=== PATIENT | male | born 1940 | race Caucasian/White ===

== ENCOUNTER → 2018-03-15 10:35 | Outpatient (CLI) | payer OTHER, SELFPAY ==
--- NOTE | 2018-03-15 | DI.ECHO.S_ITS ---
[facility]---------+ [facility] +---------+ : : [address] : : : : [id number] : : : : Phone: [phone] +---------+ Echocardiogram Report + + :Name: GINA GUNDERSON Study Date: 03/15/2018 Height: 66 in : :[facility] Weight: 264 lb: : Gender: Male BSA: 2.3 m2 : :: 1940 Age: 77 yrs : :Reason For Study: Atrial fibrillation : :Ordering Physician: Venkatesh : :José Miguel Performed By: Lenora Georges : :Referring: Kalpana Young : + + Interpretation Summary 1) Normal left ventricular thickness, size, and systoilc function (EF 55-60%). 2) There are no obvious focal wall motion abnormalities noted but poor endocardial definition reduces the sensitivity for the detection of such. 3) Mildly to moderately enlarged right ventricle with mildly reduced function. 4) There is severe biatrial enlargement. 5) There is mild to moderate tricuspid regurgitation. 6) Compared to the Echo done 05/13/2011, RV is enlarged on today's study. Procedure: A two-dimensional transthoracic echocardiogram with color flow and Doppler was performed. The study quality was technically adequate. Comparison is made with the echocardiogram of 05-13-11. Blood pressure was unobtainable. The patient was in atrial fibrillation with heart rates between 70-83 bpm during the exam. Left Ventricle: The left ventricle is normal in size. There is normal left ventricular wall thickness. The ejection fraction is estimated to be 55-60%. Left ventricular systolic function is normal. There are no obvious focal wall motion abnormalities noted but poor endocardial definition reduces the sensitivity for the detection of such. Diastolic function could not be accurately assessed due to atrial fibrillation. Right Ventricle: The right ventricle is mild to moderately dilated. Right ventricular systolic function is mildly reduced. Atria: There is severe biatrial enlargement. The interatrial septum is intact with no evidence for an atrial septal defect. Mitral Valve: The mitral valve is normal in structure and function. There is trace mitral regurgitation. Aortic Valve: The aortic valve is trileaflet. The aortic valve opens well. There is no aortic valve stenosis. No aortic regurgitation is present. Tricuspid Valve: The tricuspid valve leaflets are thin and pliable. There is mild to moderate tricuspid regurgitation. The right ventricular systolic pressure is estimated at 31 mmHg assuming a right atrial pressure of 3 mm Hg. Pulmonic Valve: The pulmonic valve is normal in structure and function. There is no pulmonic valvular regurgitation. Great Vessels: The aortic root is normal size. The dimensions of the ascending aorta are normal. The IVC is of normal diameter and collapses greater than 50% with a sniff. This suggests a low right atrial pressure of 3 mm Hg. Pericardium/ Pleura There is no pericardial effusion. There is no pleural effusion. MMode/2D Measurements & Calculations LVIDd: 5.2 cm Ao root diam: 3.6 cm LVIDs: 3.6 cm Aortic Jxn: 2.8 cm FS: 29.8 % asc Aorta Diam: 3.3 cm EPSS: 0.98 cm Ao Arch Diam (Prox Trans): 3.1 cm IVSd: 0.92 cm LVPWd: 0.98 cm LV cohen. diameter/BSA (cm/m^2): 2.3 LV sys. diameter/BSA (cm/m^2): 1.6 LA dimension: 4.8 cm RA long axis: 6.6 cm LA A2 area: 35.5 cm2 RA area: 38.2 cm2 LA A4 area: 37.6 cm2 RA vol: 188.9 ml LA length (vol): 7.6 cm RA : 83.9 ml/m2 LA vol: 148.5 ml IVC diam: 1.8 cm LA vol index: 66.0 ml/m2 Doppler Measurements & Calculations Ao V2 max: 129.8 cm/sec MV E max javi: 103.0 cm/sec Ao V2 mean: 84.3 cm/sec MV A max javi: 33.5 cm/sec Ao max P.7 mmHg MV E/A: 3.1 Ao mean P.3 mmHg Med Peak E' Javi: 5.2 cm/sec Ao V2 VTI: 25.7 cm E/E' med: 20.0 Lat Peak E' Jvai: 8.0 cm/sec E/E' lat: 12.9 E/e' average: 16.4 MV dec time: 0.19 sec MV P1/2t: 56.2 msec TR max javi: 264.0 cm/sec MV P1/2t max javi: 102.6 cm/sec TR max P.9 mmHg MVA(P1/2t): 3.9 cm2 PA V2 max: 72.5 cm/sec PA V2 mean: 49.9 cm/sec PA mean P.1 mmHg PA Accel Time: 0.11 sec Reading Physician:04:39 PM
== END ==
PROVIDERS: PCP Specialist; Visit Provider Specialist
DX: I48.2 Chronic atrial fibrillation (principal); I07.1 Rheumatic tricuspid insufficiency
CPT/HCPCS: 93306

== ENCOUNTER → 2021-04-23 09:02 | Outpatient (CLI) | payer OTHER, SELFPAY ==
--- NOTE | 2021-04-23 | DI.ECHO.S_ITS ---
[facility]---------+ [facility] +---------+ : : [address] : [address] : : : : [id number] : : : : Phone: [phone] : : [phone] +---------+ Echocardiogram Report + + :Name: GINA GUNDERSON Study Date: 04/23/2021 Height: 66 in : :[facility] ReadingLocation: Weight: 242 lb : : Gender: Male BSA: 2.2 m2 : :: 1940 Age: 80 yrs BP: 125/84 mmHg: :Reason For Study: HEART DISEASE : :Ordering Physician: FELICIA, : :MIKKI Performed By: Jeannine Magaña : :Referring: MIKKI DUARTE : + + Interpretation Summary Left ventricular systolic function appears normal with an estimated ejection fraction of 60 to 65% without focal wall motion abnormality and appears unchanged from the previous study. Left ventricular size and wall thickness appear normal. Diastolic function is challenging to assess in the setting of atrial fibrillation but there is no compelling evidence for increased filling pressures. There has been no significant change since the previous exam. The right ventricle appears normal in size and systolic function and appears smaller and slightly more dynamic compared to the previous study. Right ventricular systolic pressure is estimated at 31 mmHg with a CVP of 3 mmHg which is unchanged from the previous exam. There is severe biatrial enlargement. The right atrium measures slightly smaller compared to the previous exam. There is mild mitral and mild tricuspid regurgitation, the latter being slightly less prominent compared to the previous study. There is mild aortic valve sclerosis without stenosis. The ascending aorta is borderline enlarged and measures slightly larger compared to the previous study. The patient was in atrial fibrillation at 68 to 82 bpm throughout the exam. Procedure: A two-dimensional transthoracic echocardiogram with color flow and Doppler was performed. The study quality was technically adequate. Comparison is made with the echocardiogram of 03/15/2018. The patient was in atrial fibrillation with heart rates between 68-82 bpm during the exam. Left Ventricle: The left ventricle appears normal in size, wall thickness, and systolic function without any focal wall motion abnormalities. The ejection fraction is estimated to be 60-65%. Diastolic function could not be accurately assessed due to atrial fibrillation. There has been no significant change since the previous study. Right Ventricle: The right ventricle is normal in size and function. This is smaller and slightly more dynamic compared to the previous study. Atria: Both atria are severely dilated. The right atrium has mildly decreased in size since the prior echo exam. There is no Doppler evidence for an interatrial shunt. Mitral Valve: There is mild mitral annular calcification. There is mild mitral regurgitation. This is unchanged compared to the previous study. Aortic Valve: The aortic valve is trileaflet. The aortic valve is mildly calcified. There is mildly reduced leaflet mobility. There is no aortic valve stenosis. There is no hemodynamically significant valvular aortic stenosis. No aortic regurgitation is present. Tricuspid Valve: The tricuspid valve is normal in structure and function. There is mild tricuspid regurgitation. This is slightly less prominent compared to the previous study. The right ventricular systolic pressure is estimated to be at least 31 mmHg based on an estimated right atrial pressure of 3 mm Hg. This is unchanged compared to the previous study. Pulmonic Valve: The pulmonic valve is not well seen, but is grossly normal. There is trace pulmonic regurgitation. Great Vessels: The aortic root is normal size. The ascending aorta is at the upper limits of normal in size. This is slightly larger compared to the previous study. The IVC is of normal diameter and collapses greater than 50% with a sniff. This suggests a low right atrial pressure of 3 mm Hg. Pericardium/ Pleura There is no pericardial effusion. There is no pleural effusion. MMode/2D Measurements & Calculations LVIDd: 5.1 cm LVOT diam: 2.0 cm LVIDs: 3.7 cm Ao root diam: 3.5 cm FS: 27.2 % asc Aorta Diam: 3.5 cm IVSd: 1.0 cm Ao Arch Diam (Prox Trans): 2.7 cm LVPWd: 0.94 cm LV cohen. diameter/BSA (cm/m^2): 2.4 LV sys. diameter/BSA (cm/m^2): 1.7 LA A2 area: 33.5 cm2 RA long axis: 6.3 cm LA A4 area: 36.0 cm2 RA area: 30.4 cm2 LA length (vol): 7.7 cm RA vol: 124.5 ml LA vol: 132.8 ml RA : 57.4 ml/m2 LA vol index: 61.2 ml/m2 IVC diam: 1.9 cm RVD1 (basal): 3.9 cm TAPSE: 1.8 cm Doppler Measurements & Calculations Ao V2 max: 135.2 cm/sec LVOT Max Javi: 54.7 cm/sec Ao V2 mean: 103.6 cm/sec LV V1 max P.2 mmHg Ao max P.3 mmHg LV V1 VTI: 11.0 cm Ao mean P.6 mmHg ALEXANDER(I,D): 1.5 cm2 Ao V2 VTI: 23.8 cm ALEXANDER(V,D): 1.3 cm2 sev ratio: 0.46 ALEXANDER indexed to BSA (cm^2/m^2): 0.68 MV E max javi: 95.6 cm/sec TR max javi: 264.8 cm/sec MV A max javi: 1.7 cm/sec TR max P.0 mmHg MV E/A: 55.0 PA V2 max: 71.5 cm/sec Med Peak E' Javi: 6.0 cm/sec PA V2 mean: 45.8 cm/sec E/E' med: 15.9 PA mean P.99 mmHg Lat Peak E' Javi: 8.6 cm/sec PA pr(Accel): 55.0 mmHg E/E' lat: 11.1 E/e' average: 13.5 MV dec time: 0.20 sec SV(LVOT): 34.9 ml Reading Physician:09:09 AM
== END ==
PROVIDERS: PCP Physician Assistant Medical; Referring Provider Specialist; Visit Provider Specialist
DX: I65.23 Occlusion and stenosis of bilateral carotid arteries (principal); I51.9 Heart disease, unspecified
CPT/HCPCS: 93306

== ENCOUNTER → 2023-05-23 13:47 | Outpatient (CLI) | payer OTHER, SELFPAY ==
--- NOTE | 2023-05-24 22:46 | DI.NM.S_ITS ---
DATE OF SERVICE: 05/23/2023 PROCEDURE: Pharmacological perfusion study. INDICATIONS: Shortness of breath with underlying AFib. RADIOPHARMACEUTICAL: 27.1 millicurie technetium-99m Myoview IV was injected at stress and 27 millicurie technetium-99m Myoview IV was injected at rest. CARDIAC STRESS: The patient underwent IV Lexiscan perfusion study under the supervision of an attending staff as per protocol. The patient remained hemodynamically stable. Peak blood pressure 140/80 mmHg. Baseline rhythm was atrial fibrillation with nonspecific ST-T changes and frequent PVCs including ventricular couplets. During stress, patient continued to have PVCs. No ventricular tachycardia. No new ischemic changes. No chest pain. The patient had flushing, and shortness of breath with IV Lexiscan. RAW DATA: There is increased subdiaphragmatic activity. GATED STUDY: Stress LV ejection fraction 73% without any obvious wall motion abnormalities. Resting LV ejection fraction 70%. Resting end- diastolic volume 69 mL. TID ratio 1.18, which is within normal limits. Lung/heart ratio 0.28, which is within normal limits. MYOCARDIAL PERFUSION SCAN: Stress supine, resting supine and stress prone images were compared to each other. Stress supine and resting supine images revealed small size, minimally decreased perfusion of distal inferior wall as well as inferoapex which got resolved during stress prone images suggestive of diaphragmatic tissue attenuation artifact. No convincing ischemia or infarction. CONCLUSION: I will call this study a likely normal myocardial perfusion study with evidence of diaphragmatic tissue attenuation artifact, which got improved during stress prone images. No convincing ischemia or infarction. Baseline rhythm atrial fibrillation, also has intermittent premature ventricular contractions. Left ventricular function is preserved. Overall, low-risk myocardial perfusion scan. Nash Quiroga - PREET/dar/REJI doc#: [id number]/job#: [id number] dd: 05/24/2023 17:08:00 dt: 05/24/2023 22:33:00 DICTATING MD/COPIES TO: Selena Aparicio MD COPIES MNE: CELINA;
== END ==
PROVIDERS: PCP Physician Assistant Medical; Referring Provider Specialist; Visit Provider Specialist
DX: R06.09 Other forms of dyspnea (principal); I49.3 Ventricular premature depolarization
CPT/HCPCS: 78452; 93017; A9502; J2785

== ENCOUNTER → 2023-11-24 06:44 | Outpatient (CLI) | payer OTHER, SELFPAY ==
--- NOTE | 2023-11-24 06:45 | DI.ECHO.S_ITS ---
[facility]---------+ [facility] +---------+ : : [address] : : : : [id number] : : : : Phone: [phone] : : [phone] +---------+ Echocardiogram Report + + :Name: GINA GUNDERSON Study Date: 11/24/2023 Height: 66 in : :[facility] ReadingLocation: Weight: 255 lb : : Gender: Male BSA: 2.2 m2 : :: 1940 Age: 83 yrs BP: 146/98 mmHg: :Reason For Study: CHEST PAIN : :Ordering Physician: FELICIA, : :MIKKI Performed By: Jeannine Magaña : :Referring: MIKKI DUARTE : + + Interpretation Summary Left ventricular systolic function is borderline reduced with an estimated ejection fraction of 50 to 60% with mild [id number] variability due to atrial fibrillation and a mild dyssynchronous contraction pattern. There is hypokinesis in the proximal portion of the inferior wall that is unchanged and no other focal wall motion abnormality. Overall contractility is slightly less dynamic compared to the previous study. Diastolic function remains challenging to assess but there is no evidence for elevated filling pressures, which are likely unchanged, perhaps slightly lower compared to the previous study. The right ventricle is normal in size with mildly reduced systolic function and appears slightly less dynamic compared to the previous study. Right ventricular systolic pressure is estimated at 53 mmHg with a CVP of 3 mmHg, and is likely higher compared to the previous exam. There is severe left atrial enlargement and moderate right atrial enlargement, both measuring slightly smaller compared to the previous study. There is trivial mitral regurgitation that is less prominent from the previous study and mild to moderate tricuspid regurgitation that appears unchanged. There is probable moderate aortic stenosis that is likely progressive since the previous study with a peak velocity of 2.5 m/s and a mean gradient of 13 mmHg, compared to 1.3 m/s and 5 mmHg, respectively, on the previous exam. The severity ratio has decreased from 0.46 down to 0.22. The ascending aorta remains borderline enlarged but unchanged. The patient remains in atrial fibrillation at 72 to 87 bpm, similar to the previous exam. Procedure: A two-dimensional transthoracic echocardiogram with color flow and Doppler was performed. The study quality was technically adequate. Comparison is made with the echocardiogram of 04/23/2021. The patient was in atrial fibrillation with heart rates between 72-87 bpm during the exam. Left Ventricle: The left ventricle is normal in size and wall thickness. The estimated left ventricular end diastolic volume is 63 mL compared to the previous 50 ml. Left ventricular ejection fraction is estimated to be 50 to 60% with [id number] variability. There is a mild dyssynchronous contraction pattern, consistent with a conduction abnormality. There is basal inferior wall moderate hypokinesis. This is unchanged compared to the previous study. Diastolic function could not be accurately assessed due to atrial fibrillation. This is likely unchanged to perhaps slightly lower compared to the previous study. Right Ventricle: The right ventricle is normal size. Right ventricular systolic function is mildly reduced. This is slightly less dynamic compared to the previous study. Atria: The left atrium is severely dilated. Both atria have mildly decreased in size since the prior echo exam. The right atrium is moderately dilated. There is no Doppler evidence for an interatrial shunt. Mitral Valve: There is mild mitral annular calcification. The mitral valve leaflets appear mildly thickened, but open well. There is trace mitral regurgitation. This is slightly less prominent compared to the previous study. Aortic Valve: The aortic valve is moderately calcified. There is moderately reduced leaflet mobility. There is moderate aortic stenosis. This is progressive compared to the previous study. The peak aortic velocity is 2.5 m/sec. The peak aortic velocity on the previous exam was 1.3 m/sec. The aortic valve mean gradient is 13 mmHg, compared to the previous 5 mmHg. No aortic regurgitation is present. Tricuspid Valve: The tricuspid valve leaflets are thin and pliable. There is mild to moderate tricuspid regurgitation. This is unchanged compared to the previous study. The right ventricular systolic pressure is estimated to be at least 53 mmHg based on an estimated right atrial pressure of 3 mm Hg. This is likely higher compared to the previous study. Pulmonic Valve: The pulmonic valve leaflets are thin and pliable; valve motion is normal. There is a trace or physiologic amount of pulmonic regurgitation. Great Vessels: The aortic root is normal size. The ascending aorta is at the upper limits of normal in size. This is unchanged compared to the previous study. The IVC is of normal diameter and collapses greater than 50% with a sniff. This suggests a low right atrial pressure of 3 mm Hg. Pericardium/ Pleura There is no pericardial effusion. There is no pleural effusion. MMode/2D Measurements & Calculations LVIDd: 5.4 cm LVOT diam: 2.0 cm LVIDs: 4.1 cm Ao root diam: 3.4 cm FS: 24.5 % asc Aorta Diam: 3.5 cm EPSS: 1.4 cm Ao Arch Diam (Prox Trans): 2.7 cm IVSd: 1.1 cm LVPWd: 0.97 cm LV cohen. diameter/BSA (cm/m^2): 2.4 LV sys. diameter/BSA (cm/m^2): 1.8 LA A2 area: 30.3 cm2 RA long axis: 6.4 cm LA A4 area: 32.0 cm2 RA area: 26.3 cm2 LA length (vol): 7.3 cm RA vol: 92.4 ml LA vol: 112.6 ml RA : 41.6 ml/m2 LA vol index: 50.8 ml/m2 IVC diam: 1.8 cm RVD1 (basal): 3.6 cm TAPSE: 1.5 cm Doppler Measurements & Calculations Ao V2 max: 245.1 cm/sec LVOT Max Javi: 47.4 cm/sec Ao V2 mean: 158.2 cm/sec LV V1 max P.90 mmHg Ao max P.8 mmHg LV V1 VTI: 9.9 cm Ao mean P.8 mmHg ALEXANDER(I,D): 0.71 cm2 Ao V2 VTI: 46.0 cm ALEXANDER(V,D): 0.63 cm2 sev ratio: 0.22 ALEXANDER indexed to BSA (cm^2/m^2): 0.32 MV E max javi: 90.5 cm/sec TR max javi: 356.3 cm/sec Med Peak E' Javi: 6.5 cm/sec TR max P.8 mmHg E/E' med: 13.9 PA V2 max: 74.9 cm/sec Lat Peak E' Javi: 9.5 cm/sec PA V2 mean: 55.6 cm/sec E/E' lat: 9.5 PA mean P.3 mmHg E/e' average: 11.7 PA pr(Accel): 49.9 mmHg MV dec time: 0.20 sec SV(LVOT): 32.5 ml Reading Physician:10:59 AM
== END ==
LOC: ECHO 06:45
PROVIDERS: PCP Physician Assistant Medical; Referring Provider Specialist; Visit Provider Specialist
DX: R06.09 Other forms of dyspnea (principal); I08.3 Combined rheumatic disorders of mitral, aortic and tricuspid valves
CPT/HCPCS: 93306

== ENCOUNTER → 2024-08-30 08:47 | Outpatient (CLI) | payer OTHER, SELFPAY ==
--- NOTE | 2024-08-30 | DI.ECHO.S_ITS ---
[facility] : : [address] : : [place] : : [id number] : : Phone: [phone] Echocardiogram Report + + :Name: GINA GUNDERSON Study Date: 08/30/2024 Height: 66 in : :Hospital ReadingLocation: Weight: 257 lb : : Gender: Male BSA: 2.2 m2 : :: 1940 Age: 84 yrs BP: 154/83 mmHg: :Reason For Study: AORTIC VALVE STENOSIS : :Ordering Physician: FELICIA, : :MIKKI Performed By: Monroe Donnelly : :Referring: MIKKI DUARTE : + + Interpretation Summary Left ventricular systolic function remains mildly decreased with an estimated ejection fraction of 45 to 55% with moderate [id number] variability and a mild dyssynchronous contraction pattern with mild global hypokinesis, worse at the base compared to the apex, but similar to the previous exam. Left ventricular size and wall thickness remain normal, and while diastolic function is challenging to assess because of atrial fibrillation, there is evidence for increased filling pressures, likely higher compared to the previous study. The right ventricle is mild to moderately enlarged and mildly hypokinetic and appears larger and slightly less dynamic compared to the previous study. Right ventricular systolic pressure is estimated at 73 mmHg with a CVP of 8 mmHg, both likely higher compared to the previous exam. There is severe left atrial enlargement which is unchanged and severe right atrial enlargement which has increased in size. There is mild to moderate tricuspid regurgitation that appears unchanged. There is probable moderate to severe aortic stenosis that is likely slightly progressive since the previous study with a peak transvalvular velocity of 2.6 m/s and a mean gradient of 16 mmHg, compared to 2.5 m/s and 13 mmHg, respectively, on the previous study. The LVOT velocity remains depressed at 0.7 m/s but higher than the previous 0.5 m/s and the severity index has increased from 0.22 up to 0.27. The ascending aorta remains borderline enlarged but unchanged at 3.6 cm. The patient remains in atrial fibrillation at 7187 bpm. Procedure: A two-dimensional transthoracic echocardiogram with color flow and Doppler was performed. The study quality was technically good. Comparison is made with the echocardiogram of 11/24/2023. The patient was in atrial fibrillation with heart rates between 71-87 bpm during the exam. Left Ventricle: The left ventricle is normal in size and wall thickness. The estimated left ventricular end diastolic volume is 83 mL compared to the previous 63 ml. There is no ventricular septal defect visualized. Left ventricular systolic function is mildly reduced. Left ventricular ejection fraction is estimated to be 45 to 55%. There is a mild dyssynchronous contraction pattern, consistent with a conduction abnormality. There is mild global hypokinesis of the left ventricle. This is worse at the base compared to the apex but is similar to the previous exam. Diastolic function could not be accurately assessed due to atrial fibrillation. Diastolic parameters suggest probable elevated filling pressures. This is higher compared to the previous study. Right Ventricle: The right ventricle is mild to moderately dilated. Right ventricular systolic function is mildly reduced. This is larger, and slightly less dynamic compared to the previous study. Atria: The left atrium is severely dilated. This is unchanged compared to the previous study. The right atrium is severely dilated. The right atrium has significantly increased in size since the prior echo exam. There is no Doppler evidence for an atrial septal defect. Mitral Valve: There is moderate mitral annular calcification. The mitral valve leaflets appear mildly thickened, but open well. There is trace mitral regurgitation. Aortic Valve: The aortic valve is trileaflet. The aortic valve is moderately calcified. There is moderate to severely reduced leaflet mobility. There is moderate to severe aortic stenosis. This is slightly progressive compared to the previous study. The peak aortic velocity is 2.6 m/sec. The peak aortic velocity on the previous exam was 2.5 m/sec. The aortic valve mean gradient is 16 mmHg compared to the previous 13 mmHg. The calculated aortic valve area is 0.8 cm2. The LVOT velocity remains depressed at 0.7 m/s but higher compared to the previous 0.5 m/s and the severity index has increased from 0.22 up to 0.27. No aortic regurgitation is present. Tricuspid Valve: The tricuspid valve leaflets are thin and pliable. There is mild to moderate tricuspid regurgitation. This is unchanged compared to the previous study. The right ventricular systolic pressure is estimated to be at least 73 mmHg based on an estimated right atrial pressure of 8 mm Hg. This is likely higher compared to the previous study. Pulmonic Valve: The pulmonic valve leaflets are thin and pliable; valve motion is normal. There is no pulmonic valvular regurgitation. Great Vessels: The aortic root is normal size. The ascending aorta is at the upper limits of normal in size. This is unchanged compared to the previous study. The aortic arch is normal in size. The pulmonary artery is normal size. The IVC is dilated (diameter is greater than 2.1 cm) yet it collapses greater than 50% with a sniff. This suggests a right atrial pressure of 8 mm Hg. Pericardium/ Pleura There is no pericardial effusion. There is no pleural effusion. MMode/2D Measurements & Calculations LVIDd: 5.3 cm LVOT diam: 2.0 cm LVIDs: 4.3 cm Ao root diam: 3.5 cm FS: 19.1 % asc Aorta Diam: 3.6 cm EPSS: 1.1 cm Ao Arch Diam (Prox Trans): 2.5 cm IVSd: 0.87 cm LVPWd: 0.92 cm LV cohen. diameter/BSA (cm/m^2): 2.4 LV sys. diameter/BSA (cm/m^2): 1.9 LA A2 area: 34.1 cm2 RA long axis: 6.2 cm LA A4 area: 31.6 cm2 RA area: 29.9 cm2 LA length (vol): 7.8 cm RA vol: 121.4 ml LA vol: 118.0 ml RA : 54.5 ml/m2 LA vol index: 53.0 ml/m2 IVC diam: 2.3 cm RVD1 (basal): 4.1 cm RVD2 (mid): 3.4 cm TAPSE: 2.3 cm Doppler Measurements & Calculations Ao V2 max: 259.6 cm/sec LVOT Max Javi: 70.3 cm/sec Ao V2 mean: 194.1 cm/sec LV V1 max P.0 mmHg Ao max P.9 mmHg LV V1 VTI: 14.8 cm Ao mean P.5 mmHg ALEXANDER(I,D): 0.82 cm2 Ao V2 VTI: 55.4 cm ALEXANDER(V,D): 0.83 cm2 sev ratio: 0.27 ALEXANDER indexed to BSA (cm^2/m^2): 0.37 MV E max javi: 105.1 cm/sec TR max javi: 402.6 cm/sec MV A max javi: 31.2 cm/sec TR max P.8 mmHg MV E/A: 3.4 PA V2 max: 69.9 cm/sec Med Peak E' Javi: 4.7 cm/sec PA V2 mean: 44.1 cm/sec E/E' med: 22.5 PA mean P.90 mmHg Lat Peak E' Javi: 7.6 cm/sec PA pr(Accel): 43.0 mmHg E/E' lat: 13.8 E/e' average: 18.1 MV dec time: 0.13 sec [facility] 45.6 ml Reading Physician:04:06 PM
== END ==
PROVIDERS: PCP Physician Assistant Medical; Referring Provider Specialist; Visit Provider Specialist
DX: I08.3 Combined rheumatic disorders of mitral, aortic and tricuspid valves (principal)
CPT/HCPCS: 93306

== ENCOUNTER → 2024-09-05 07:59 | Outpatient (CLI) | payer OTHER, SELFPAY | LOC: RESP 07:59 | PROVIDERS: PCP Physician Assistant Medical; Referring Provider Internal Medicine Critical Care Medicine; Visit Provider Internal Medicine Critical Care Medicine | DX: R06.2 Wheezing (principal); R94.2 Abnormal results of pulmonary function studies; R06.02 Shortness of breath; Z87.891 Personal history of nicotine dependence | CPT/HCPCS: 94060; 94726; 94729; 99215 ==